=== PATIENT | male | born 1950 | race Caucasian/White ===

== ENCOUNTER → 2020-06-20 10:09 | Outpatient (CLI) | payer OTHER, MEDICARE, SELFPAY ==
--- NOTE | 2020-06-20 10:16 | DI.RAD.S_ITS ---
PROCEDURE: XR HIP W PEL IF DONE LT 2V INDICATIONS: l hip pain TECHNIQUE: AP and frogleg lateral views of the hip were acquired. COMPARISON: None. FINDINGS: Bones: No acute fractures or dislocations. No suspicious bony lesions. The visualized pelvic ring appears intact. Degenerative changes of the bilateral femoroacetabular joints, more severe on the left. Lower lumbar spondylitic changes. Soft tissues: No suspicious soft tissue calcifications or masses. Radiation seeds noted in the region of the prostate fossa. IMPRESSION: 1. Left hip without acute radiographic abnormalities. 2. 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 3. Lower lumbar spondylosis. Dictated by: Jose Bello M.D. on 06/20/2020 at 12:20 Approved by: Jose Bello M.D. on 06/20/2020 at 12:21
[2020-06-20 11:13] LABS: Alanine Aminotransferase 65 IU/L (<50); Albumin 4.8 g/dL (3.5-5.0); Albumin Globulin Ratio 1.6 (1.0-2.8); Alkaline Phosphatase 67 U/L (38-126); Aspartate Aminotransferase 44 IU/L (17-59); Bilirubin Total 1.3 mg/dL (0.2-1.3); Blood Urea Nitrogen 20 mg/dL (9-20); Carbon Dioxide 28 mmol/L (22-32); Chloride 103 mmol/L (98-107); Cholesterol 202 mg/dL (140-199); Estimated Glomerular Filt Rate > 60.0 mL/min (>60); Glucose 102 mg/dL (80-110); HDL Cholesterol 42 mg/dL (40-60); HEMOLYSIS < 15 (0-50); LDL Cholesterol Calculated 128 mg/dL (<100); Potassium 4.6 mmol/L (3.4-5.1); Sodium 141 mmol/L (137-145); Total Protein 7.8 g/dL (6.3-8.2); Triglycerides 158 mg/dL (35-150)
[2020-06-20 11:25] LABS: Vitamin D 25 Hydroxy (D3) 37.4 ng/mL (30.0-100.0)
[2020-06-20 11:39] LABS: Prostate Specific Antigen < 0.064 ng/mL (0.10-4.00)
== END ==
PROVIDERS: PCP Internal Medicine; Referring Provider Internal Medicine; Visit Provider Internal Medicine
DX: M25.552 Pain in left hip (principal); C61 Malignant neoplasm of prostate; Z13.1 Encounter for screening for diabetes mellitus; Z13.220 Encounter for screening for lipoid disorders; Z13.6 Encounter for screening for cardiovascular disorders
CPT/HCPCS: 36415; 73502; 80053; 80061; 82306; 84153

== ENCOUNTER → 2020-06-20 10:32 | Outpatient (CLI) | payer OTHER, MEDICARE, SELFPAY | PROVIDERS: PCP Internal Medicine; Referring Provider Internal Medicine; Visit Provider Internal Medicine | DX: M25.552 Pain in left hip (principal); M16.0 Bilateral primary osteoarthritis of hip; M47.816 Spondylosis without myelopathy or radiculopathy, lumbar region ==

== ENCOUNTER → 2020-11-01 10:17 | Outpatient (CLI) | payer OTHER, SELFPAY ==
[2020-11-01 11:19] LABS: Add Manual Diff / Slide Review NO; Basophils Absolute Auto 0 /uL (0-100); Basophils Percent Auto 0.4 % (0-2); Eosinophils Absolute Auto 100 /uL (0-450); Eosinophils Percent Auto 3.2 % (2-4); Hematocrit 42.5 % (41-53); Hemoglobin 14.4 g/dL (13.5-17.5); Lymphocytes Absolute Auto 700 /uL (1100-4500); Lymphocytes Percent Auto 15.5 % (25-40); Mean Corpuscular Hemoglobin 30.7 PG (26-34); Mean Corpuscular Volume 90.4 fL (80-100); Monocytes Absolute Auto 500 /uL (0-900); Neutrophils Absolute Auto 3100 /uL (1500-7000); Neutrophils Percent Auto 68.9 % (50-75); Platelet Count 240 X10^3/uL (150-400); Red Cell Distribution Width 14.1 % (11.6-14.8); White Blood Cell Count 4.6 X10^3/uL (4.5-11.0)
[2020-11-01 11:31] LABS: Hemoglobin A1C% w Est Avg Glu 5.3 % (4.0-6.0)
[2020-11-01 11:50] LABS: BUN Creatinine Ratio 23.8 (6-22); Blood Urea Nitrogen 20 mg/dL (9-20); Carbon Dioxide 26 mmol/L (22-32); Chloride 108 mmol/L (98-107); Estimated Glomerular Filt Rate > 60.0 mL/min (>60); Glucose 108 mg/dL (80-110); HEMOLYSIS < 15 (0-50); Potassium 4.4 mmol/L (3.4-5.1); Sodium 142 mmol/L (137-145)
== END ==
PROVIDERS: PCP Internal Medicine; Referring Provider Orthopaedic Surgery Adult Reconstructive Orthopaedic Surgery; Visit Provider Orthopaedic Surgery Adult Reconstructive Orthopaedic Surgery
DX: Z01.818 Encounter for other preprocedural examination (principal); R73.9 Hyperglycemia, unspecified; Z01.812 Encounter for preprocedural laboratory examination
CPT/HCPCS: 36415; 80048; 83036; 85025; 93005; 93010

== ENCOUNTER → 2020-11-13 13:33 | Outpatient (CLI) | payer OTHER, SELFPAY ==
[2020-11-13 15:59] LABS: COVID19 -Nasal RAPID Negative (Negative)
== END ==
PROVIDERS: PCP Internal Medicine; Visit Provider Nurse Practitioner
DX: Z01.812 Encounter for preprocedural laboratory examination (principal); Z20.822 Contact with and (suspected) exposure to COVID-19
CPT/HCPCS: 87635; C9803

== ENCOUNTER → 2020-12-02 09:13 | Outpatient (CLI) | payer OTHER, SELFPAY ==
[2020-12-02 14:30] LABS: COVID19 -Nasal RAPID Negative (Negative)
== END ==
PROVIDERS: PCP Internal Medicine; Visit Provider Physician Assistant
DX: Z01.812 Encounter for preprocedural laboratory examination (principal); Z20.822 Contact with and (suspected) exposure to COVID-19
CPT/HCPCS: 87635

== ENCOUNTER 2020-12-04 06:23 | Day surgery (SDC) | payer OTHER, SELFPAY ==
[2020-12-04] VITALS (19 sets, daily range): BP systolic 79–155; BP diastolic 31–100; PULSE 86–107; RESP 8–99; TEMP 35.5–36.9; O2SAT 22–100; BMI 27.2
--- NOTE | 2020-12-04 | DI.RAD.S_ITS ---
PROCEDURE: XR PELVIS 1-2V INDICATIONS: POST OPERATIVE LEFT HIP TECHNIQUE: 1 view of the lower pelvis acquired. COMPARISON: None. FINDINGS: Bones: Patient is status post left hip arthroplasty, with hardware components in expected positions. The hip joint appears congruent. The visualized bony structures appear intact. Soft tissues: Overlying postoperative changes are noted. No suspicious soft tissue densities. Brachytherapy seeds are noted in the prostate gland. IMPRESSION: Postop changes from left total hip arthroplasty with anatomic alignment. Dictated by: Erik Mariano M.D. on 12/04/2020 at 10:27 Approved by: Erik Mariano M.D. on 12/04/2020 at 10:27
--- NOTE | 2020-12-04 | DI.RAD.S_ITS ---
PROCEDURE: XR HIP LT 1V INDICATIONS: LEFT ANTERIOR HIP TECHNIQUE: 2 view(s) of the hip acquired. COMPARISON: [facility], CR, XR HIP W PEL IF DONE LT 2V, 06/20/2020, 10:35. FINDINGS: Bones: Patient is status post left hip arthroplasty, with hardware components in expected positions. The hip joint appears congruent. The visualized bony structures appear intact. Soft tissues: Overlying postoperative changes are noted. No suspicious soft tissue densities. Note is made of prior radiation therapy seed implants at the midline. IMPRESSION: Normal alignment established after left total hip arthroplasty. Dictated by: Eris Pool M.D. on 12/04/2020 at 10:42 Approved by: Eris Pool M.D. on 12/04/2020 at 10:56
[2020-12-04] MEDS: LACTATED RINGERS 1,000 ML 42 ML IV ×2 (07:12→09:04)
[2020-12-04] MEDS: ACETAMINOPHEN 325 MG TABLET 975 MG PO (07:14)
[2020-12-04] MEDS: CELECOXIB 200 MG CAPSULE PO (07:14)
--- NOTE | 2020-12-04 07:37 | PM.HP.1 ---
History of Present Illness History of Present Illness Date Patient Seen: 12/04/20 Time Patient Seen: 07:38 Chief complaint: *OPB* Narrative: Patient is a 7-year-old male with a longstanding history of left pain consisting mainly of anterior groin pain. He has failed conservative measures including NSAIDs activity modification etc.. Patient was initially scheduled tentatively for November 15, 2020 however this was delayed. He is here today for his left anterior total hip arthroplasty. Patient History Medical History Hearing loss Shoulder pain Vision disorder Surgical History Anesthesia History of knee surgery (~2009) History of rotator cuff surgery (~2016) Treatment (~2011) Family & Social History Family History Father History of heart disease Stroke Mother History of heart disease Brother Hypertension Liver disease Social History: household members spouse Prior Living Arrangements House Safety & Behavioral: Feels Safe in Current Yes Environment Been Physically Hurt or No Threatened By a Person Suicidal Ideation Description None Suicide Plan Description No Plan Tobacco & Substance use: Tobacco type cigarettes Smoking Status Former smoker alcohol intake current alcohol intake frequency a few times a week Substance Use Type does not use Meds Home Medications and Allergies Home Medications Medication Instructions Recorded Confirmed Type Milk Thistle 1 cap PO DAILY 06/20/20 12/04/20 History lutein 40 mg capsule 40 mg PO DAILY 06/20/20 12/04/20 History resveratrol 250 mg capsule 500 mg PO DAILY cap 06/20/20 12/04/20 History triamcinolone acetonide 0.1 % 1 applictn TOP DAILY PRN #80 gram 06/20/20 11/01/20 Rx topical cream acetaminophen [Tylenol Extra 1,000 mg PO TID 11/01/20 12/04/20 History Strength] tamsulosin 0.4 mg PO DAILY 11/01/20 12/04/20 History Allergies Allergy/AdvReac Type Severity Reaction Status Date / Time hydrocodone [From Vicodin] Allergy Intermediate Jittery, Verified 12/04/20 06:48 bumps forming on patient. [place] out of body Review of Systems Review of Systems ROS: Yes All systems reviewed with the patient and are negative except as otherwise documented Exam Vital Signs (past 8 hours): - 12/04/20 07:02 Temperature 97.6 F Pulse Rate 92 H Respiratory Rate 16 Blood Pressure 139/85 Pulse Oximetry 97 Oxygen Delivery Method Room Air Narrative Exam Narrative: Neurovascular intact to left lower extremity. Positive FADIR, positive Etta, negative log roll. No tenderness to palpation of greater trochanter. No skin breaks or rashes. Assessment & Plan Assessment & Plan narrative: Patient is a 70-year-old male here for his left anterior total hip arthroplasty. He was initially scheduled for November 15, 2020 however this was delayed. Plan is for aspirin 81 mg b.i.d. for 6 weeks for DVT prophylaxis. Patient will plan to spend 1 night in the hospital and discharged home with family. Preoperative labs and EKG have been reviewed. Plan for left anterior total hip arthroplasty. COVID-19 COVID-19 status: Negative Result date/Date tested (Pos, Neg/Pending): 12/02/20 Quality MIPS - Admit Advanced Care Plan / Current Medications Measures: #47 ? Advanced Care Plan Clinician documentation instruction: document at admission. [] I confirmed that the patient's Advance Care Plan is present, code status is documented, or surrogate decision maker is listed in the patient?s medical record. [SATISFIES [facility] PERFORMANCE] If Yes, Stop Here [] The patient?s Advance Care plan is not present because: (select) [MIPS PERFORMANCE EXCEPTION/EXCLUSION] [] I confirmed today that the patient does not wish or was not able to name a surrogate decision maker or provide an Advance Care Plan. [] Hospice care is currently being provided or has been provided this calendar year [] I did NOT confirm today the presence of an Advance Care Plan or surrogate decision maker documented within the patient's medical record. [DOES NOT SATISFY MIPS PERFORMANCE] #130 - Documentation of Current Medications in the Medical Record Clinician documentation instruction: use macro the first time you see a patient. [] I have utilized all available immediate resources to obtain, update, or review the patient?s current medications. [SATISFIES [facility] PERFORMANCE] If Yes, Stop Here [] The patient is not eligible for medication reconciliation; the patient is in an emergent medical situation where delaying treatment would jeopardize the patient?s health. [MIPS PERFORMANCE EXCEPTION/EXCLUSION] [] I did NOT confirm, update or review the patient's current list of medications today. [DOES NOT SATISFY MIPS PERFORMANCE] MIPS - CL Central Venous Catheter Placement Measure: #76 ? Prevention of Central Venous Catheter (CVC) ? Related Bloodstream Infection Clinician documentation instruction: use macro every time you place a central line. [] All elements of Maximal Sterile Barrier Technique, including hand hygiene, skin prep, and sterile ultrasound technique (if used) were followed. [SATISFIES MIPS PERFORMANCE] If Yes, Stop Here [] If ?No?, the medical reason all elements were NOT used for medical reason [] (ex. emergent condition). [] Maximal Sterile Barrier Technique was not followed, no reason provided [DOES NOT SATISFY MIPS PERFORMANCE] MIPS - DC Heart Failure Measures: #5 - Heart Failure (HF): Angiotensin-Converting Enzyme (HAWK) Inhibitor or Angiotensin Receptor Ran (ARB) Therapy for Left Ventricular Systolic Dysfunction (LVSD) and #8 - Heart Failure (HF): Beta-Ran Therapy for Left Ventricular Systolic Dysfunction (LVSD) Clinician documentation instruction: use macro at every CHF discharge. [] The patient has current or prior documentation of left ventricular ejection fraction (LVEF) less than 40%, or moderate or severely depressed left ventricular systolic function. Answer both: [SATISFIES [facility]IPS PERFORMANCE] [] The patient was prescribed or already taking an Angiotensin-Converting Enzyme (HAWK) Inhibitor, or Angiotensin Receptor Ran (ARB). [] The patient was prescribed or already taking a beta-ran. If Yes to Both, Stop Here [] Patient not prescribed/taking: [MIPS PERFORMANCE EXCEPTION/EXCLUSION] [] HAWK or ARB for medical/patient/system reason(s) including [] (ex. allergy, intolerance, contraindication) [] Beta-ran for medical/patient/system reason(s) including [] (ex. allergy, intolerance, contraindication) [] Patient not prescribed/taking: [DOES NOT SATISFY MIPS PERFORMANCE] [] HAWK or ARB, no reason given [] Beta-ran, no reason given
--- NOTE | 2020-12-04 07:41 | PM.PREOP ---
Pre-operative Note COVID-19 COVID-19 status: Negative Result date/Date tested (Pos, Neg/Pending): 12/02/20 Interval Note History & Physical reviewed/Exam performed by Physician: Yes Changes to H&P: No H&P completed within 30 days and has changed as indicated here:: Plan for left anterior total hip arthroplasty.
[2020-12-04] MEDS: CEFAZOLIN 2 GM/100 ML FROZ.PIGGY IV ×3 (07:51→23:37)
[2020-12-04] MEDS: TRANEXAMIC ACID 1,000 MG VIAL 2000 MG INJ ×2 (08:15→09:41)
--- NOTE | 2020-12-04 08:31 | SUR.OPER ---
Supine on padded Freedom table with bilateral legs secured in padded positioning boots and suspended in positioning spars, operative leg in traction per surgeon. Head on one pillow. Arm on non-operative side secured on padded armboard <90 degrees abduction. Arm on operative side padded and resting across chest then secured with tape over sheet. Padded perineal post in place per surgeon.
[2020-12-04] MEDS: KETOROLAC INJ (08:42)
[2020-12-04] MEDS: MORPHINE INJ (08:42)
[2020-12-04] MEDS: ROPIVACAINE 0.5% INJ (08:42)
[2020-12-04] MEDS: SODIUM CHLORIDE IRRIG SOLUTION 250 ML, POVIDONE-IODINE SPONGE STICKS 1 APPLIC IRR (09:32)
--- NOTE | 2020-12-04 10:10 | P.OP_ITS ---
Operative Date/Time/Diagnoses Date of procedure: 12/04/20 Time of procedure: 10:10 Pre-op diagnosis: left hip OA Post-op diagnosis: same Procedure & Clinicians Procedure: Left anteiror JARED Same procedure as scheduled: Yes Indications: left hip OA resistane to further conservative measures Surgeon: Ugo Benson Vocational Instructor: Jolie Gaviria Anesthesia Type: General and Spinal Operative Notes Findings: left hip OA with bone on bone articualtion of weight bearing portion of hip Closure Type: primary Prosthetic devices, grafts, tissues, transplants, or devices: Patton and Nephew 54 mm R3 cup 1x 30 mm screw 1x 20 mm screw 54 x 36 neutral offset polyethylene liner Patton and Nephew anthology size 9 high offset stem Oxinium 36-3 head Estimated Blood Loss (mL): 400 Procedure in detail: Patient was met in the preoperative holding area where the site and side of surgery were marked by . All last minute questions were answered. Informed consent had been reviewed in clinic and signed was also reviewed the preoperative holding area. Patient was then brought back in the operating room where he received a spinal anesthetic and then was induced under general anesthesia. He was then transferred onto the [place] table and both feet were placed in well-padded [place] table boots. The left lower extremity then prepped and draped in normal sterile fashion. A surgical time-out was performed verifying the site and side of surgery as well as the name of the patient. A 7 cm long incision approximately 2 cm distal and lateral from ASIS image was the fibular head was made in the skin using 10. Blade. Electrocautery was used to dissect down to the level of the tensor fascia. Tensor fascia was then incised using new 10. Blade. Allis clamp was then placed on the medial leaflet and the tensor muscle itself was reflected laterally. A Cobra was then placed over the superior aspect of the femoral neck. A Meyerding retractor was then placed over the lateral aspect of the rectus femoris and reactive to medially this gave us good exposure to the ascending branches of the circumflex vessels which were coagulated using electrocautery. A 2nd Cobra retractor was then placed underneath the inferior aspect of the femoral neck and a bent Hohmann was then placed over the anterior of the acetabulum to give us good capsular exposure. Inverted T-shaped capsulotomy was then performed the superior and inferior leaflets were tagged with a FiberWire suture and the Cobra retractors then placed intracapsularly this gave us good exposure to the femoral neck treated 1st reciprocating saw was used make the femoral neck cut based off the preoperative template. A corkscrew was then used to remove the femoral head. Retractors then placed to give us good acetabular exposure. The pulmonary was then removed using electrocautery and the labrum remnant was removed using a [place] blade. Then began reaming with a 40 5 mm Reamer upsizing by 2s until I got to 52 mm Reamer the last several reamers were reamed underneath fluoroscopic guidance. The 52 mm Reamer had good fit I then selected a 53 mm Reamer and selected a 54 mm 3 hole cup. This was then placed under fluoroscopic guidance and malleted into place. Two screws were then placed. The neutral offset liner was then malleted into place making sure the tabs were flush with the cup rim. Next I turned my attention the femoral side femoral elevator hook was placed under the posterior aspect of the femur the femur was externally rotated 120? extended to the floor and adducted. A bent Hohmann was then placed over the superior aspect of the superior leaflet and this was then further released off the greater trochanter to give soft spot where a large single prong retractors placed over the greater trochanter. A Nunes retractor was then placed over the calcar to give us good femoral neck exposure. The canal finer was then used followed by alex ivan bromarianne followed by broaches from sequentially from 1 through 8. We then trialed with a size 8 broach with a high offset neck and a 36+ 0 head. Hip was stable to maximal external rotation as well as 90? of external rotation and extension to the floor. Fluoroscopy demonstrated that we were a little long on the operative side as well as we could probably go up a stem size on the femur. The hip was then dislocated the trial components were then removed we up sized to a size 9 high offset stem this was then malleted into place. I then trialed again with a 36-3 head which had excellent radiographic length of leg length. Hip was then dislocated a final time the trial head was removed and Oxinium 36-3 head was then placed on the trunnion malleted into place and reduced a final time. Betadine solution was then placed into the wound and final fluoroscopic images were obtained. Betadine solution was then lavaged with copious normal saline. The periarticular injection was then performed and the capsule was then repaired using a running Ethibond suture in the FiberWire sutures were removed. The tensor fascia was then closed using 1. Vicryl in interrupted locking fashion followed by 2 Vicryl in the subcutaneous layer followed by 3-0 Stratafix in the subcuticular layer followed by Dermabond and Aquacel dressing. Complications: none Post-operative Condition: stable Disposition: PACU Plan for aftercare: 24 hours post-op abx, ASA 81mg BID for 6 weeks for DVT prophylaxis, WBAT LLE
--- NOTE | 2020-12-04 10:36 | SUR.PHASEI ---
Addendum entered by Eric Mcdonald R.N. 12/04/20 11:04: Pt was transported to room 222. Update to Taisha on last set of vitals prior to leaving recovery. Pts vitals returned to baseline. see vital signs Original Note: Pt has been experiencing labile BP. This is attributed to spinal he received prior to procedure. Per anesthesia, he required a Brendan gtt in the OR. He has been placed in trendelenburg at 7 degrees while in PACU. See current vitals. He is dozing intermittenly, verbalizes no pain and taking ice chips without difficulty. Plan for transport to room 222.
[2020-12-04] MEDS: LACTATED RINGERS 1,000 ML 125 ML IV ×2 (11:10→19:33)
[2020-12-04] MEDS: IBUPROFEN 400 MG TABLET PO ×3 (13:02→21:14)
--- NOTE | 2020-12-04 13:55 | PT.IIE ---
Current Diagnoses Unilateral primary osteoarthritis, left hip (12/04/20) Surgery Performed Operation Date: 12/04/20 07:45 Actual Procedures p Total Hip Arthroplasty/Anterior Approach(Left) - Ugo Benson MD Surgical History (Last Reviewed 06/20/20 @ 10:03 by Bright Simon MD) Anesthesia History of knee surgery (~2009) History of rotator cuff surgery (~2016) Treatment (~2011) Medical History (Last Reviewed 06/20/20 @ 10:03 by Bright Simon MD) Hearing loss Shoulder pain Vision disorder Physical Therapy Inpatient Evaluation/Re-Eval M1 PT/OT-IP Prior Functional Status Start: 12/04/20 11:03 Freq: NEEDED Status: Active Protocol: Document 12/04/20 13:53 AW (Rec: 12/04/20 14:26 AW [id number]) Medical Review Prior Functional Status Medical History Reviewed Yes Communication Pt is an effective verbal communicator. He is [place] and typically wears B hearing aids Mobility and Gait Independent without AD Activities of Daily Living and IADL's Independent with ADL's and all IADL's Social History Household Members spouse Living Arrangements House Number of Floors (Floors) One Floor Number of Stairs To Enter/Railing? 4 RYANNE with R rail through garage entrance and L rail at front entrance. Home Environment Standard Height Toilet,Walk in Shower Home Equipment Front Wheel Walker,Straight Cane,Raised Toilet Seat w/ Armrests,Shower Seat without Backrest Employment Status Retired Additional Social History Comment Pt lives in [place] with his , Stella. Both are retired and pt's will be available/able to assist as needed. M2 PT-IP Current Condition Start: 12/04/20 11:03 Freq: NEEDED Status: Active Protocol: Document 12/04/20 13:53 AW (Rec: 12/04/20 14:26 AW [id number]) Physical Therapy Current Condition Current Condition Evaluation Date 12/04/20 Treatment Diagnosis L JARED with anterior approach; difficulty in walking Onset Date 12/04/20 Precautions Anterior Hip Precautions No Hip Extension,No Hip External Rotation Weight Bearing Status Weight Bearing Status Weight Bear as Tolerated M3 PT-IP Subjective Start: 12/04/20 11:03 Freq: NEEDED Status: Active Protocol: Document 12/04/20 13:53 AW (Rec: 12/04/20 14:26 AW [id number]) Subjective Physical Therapy Visit Type Type Initial Evaluation Visit Start Time 13:21 Visit Stop Time 13:53 Total Visit Minutes 32 Notes Pt's was present throughout session Number of SENIOR ELECTRONICS ENGINEER Visits 0 Physical Therapy Visit Comments Patient Comments Pt is willing to participate with PT Patient Goals Return to regular activity Therapy Pain Assessment Pain When Pain Assessed During Mobility Pain Present Pain Present Denied Pain M4 PT-IP Mobility and Gait Start: 12/04/20 11:03 Freq: NEEDED Status: Active Protocol: Document 12/04/20 13:53 AW (Rec: 12/04/20 14:26 AW [id number]) PT-Bed Mobility Assessment Supine to Sit Supine to Sit Contact Guard Assistance,1 Person Assistance Scooting Scooting to Edge of Bed Standby Assistance PT-Transfer Assessment Sit to and From Stand Sit to and from Stand Contact Guard Assistance,1 Person Assistance,Use of Upper Extremities Equipment Transfer Assistive Device Gait Belt,Front Wheeled Walker Orthotic/Prosthetic Devices or Brace: No Transfers Transfer Destination Chair Transfer Technique Stand Step Pivot Transfer Ability Level of Assist Contact Guard Assistance Comments Mobility Comments Pt was sitting up in bed watching basketball as PT arrived. BP was 153/102 HR 100 at rest. He completed supine to sit CGA and sat EOB without complaint of dizziness or lightheadedness. He stood from the bed CGA and used the FWW to ambulate to the toilet [facility]. PT instructed pt to push the FWW over the toilet which he was able to do and then stood to void. Pt then used the FWW to ambulated in the halls a total of 75 feet SBA. On return to the room, pt transferred to the bedside chair [facility]. He was positioned there with call light and all needs in reach. His remained in the room. Fresh ice pack was applied to surgical site. Pt agreed to use the call light for all mobility needs. Gait Assessment Gait Gait Assistance Required: Standby Assistance,Contact Guard Assist Distance (Feet) 75 Able to Maintain Weight Bearing Status Yes During Gait Assistive Devices Assistive Device Gait Belt,Front Wheeled Walker Orthotic/Prosthetic Devices or Brace: No Gait Deviations General Gait Pattern Antalgic,Decreased Feet Clearance,Step-to Gait Factors Limiting Gait Function Factors Limiting Gait Function Decreased Sensation,Decreased Strength,Limited Range of Motion Comments Gait Comments Educated pt on anterior precautions. With initial gait , pt easily maintained precautions but stride length increased, prompting PT to teach modified step-to pattern for reduction of hip extension. Pt was then able to maintain precautions with minimal need for cues. Pt recalled ER precaution during turns without cues. Stair Climbing Assessment Comments Stair Climbing Comments Not assessed. PT-Balance Assessment Sitting Balance and Reactions Static Sitting Balance Ability Normal Dynamic Sitting Balance Ability Good Standing Balance and Reactions Static Standing Balance Ability Good Dynamic Standing Balance Ability Good Device Used FWW M5 PT-IP Objective Assessments Start: 12/04/20 11:03 Freq: NEEDED Status: Active Protocol: Document 12/04/20 13:53 AW (Rec: 12/04/20 14:26 AW [id number]) Orientation Orientation/Cognition Level of Alertness Alert Orientation Name,Day of Week,Place, Situation Language Function Ability Hard of Hearing Safety Awareness Understands Safety Issues Memory Description No Deficits Noted Gross Range of Motion Lower Extremity ROM Assessment Left Impaired Strength Lower Extremity Strength Assessment Left Impaired Hip 3/5 Knee 4/5 Comments Strength Comments RLE grossly 5/5 Sensation Assessment Sensation Gross Sensation Right LE Impaired,Left LE Impaired Light Touch Impaired Sensation Description Numbness Comments Sensation Comments Mild numbness BLE Muscle Tone Muscle Tone WNL Yes M6 PT-IP Treatment Start: 12/04/20 11:03 Freq: NEEDED Status: Active Protocol: Document 12/04/20 13:53 AW (Rec: 12/04/20 14:26 AW [id number]) Physical Therapy Treatment Exercises Exercises Ankle Pumps,Gluteal Sets,Quad Sets,Heel Slides Education Education Provided Precautions,Weight Bearing Status,Post-Op Packet,Safety Other Treatments Other Treatment Performed Educated pt on role of PT, plan of care, WB status, anterior hip precautions, and safe use of FWW. M7 PT-IP Assessment and Plan Start: 12/04/20 11:03 Freq: NEEDED Status: Active Protocol: Document 12/04/20 13:53 AW (Rec: 12/04/20 14:26 AW [id number]) PT Summary Assessment and Plan Potential Rehabilitation Potential Excellent Status of Condition at Evaluation Evolving Summary Impairments Pain,ROM,Strength,Sensation, Bed Mobility,Transfers,Gait Assessment Summary Enoch is an active 70 yo man seen for PT evaluation on POD0 following L JARED with anterior approach. He is independent in all regards at baseline. He required SBA to CGA with FWW for all mobilities during evaluation. He also needed cues to maintain anterior precautions during gait. PT anticipates pt will be safe to discharge home with spouse to assist and outpatient PT once he completes stair training and is medically cleared. Goals Bed Mobility Goal Independent Transfer Goal Independent,Front Wheeled Walker Gait Goal Independent,Front Wheel Walker Gait Distance 200 Other Goals - up/down 4 steps with unilateral rail SBA Days to Meet Goals 2 Frequency of Treatment Frequency Of Treatment Twice a Day Treatment Plan Physical Therapy Treatment Plan Bed Mobility Training,Transfer Training,Gait Training, Therapeutic Exercise,Balance Retraining,Post Op Education, Discharge Planning,Hot or Cold Pack Other Recommendations and Next Treatment review precautions; stairs Focus Precautions Anterior Hip Precautions No Hip Extension,No Hip External Rotation Recommendations To Nursing Amount of Assist Needed Standby Assistance Discharge Recommendations PT Discharge Recommendations Home with Assistance, Outpatient PT Transportation Needs at Discharge Private Vehicle
--- NOTE | 2020-12-04 14:10 | PC.NURSE ---
Pt arrived via gurney from PACU to 221 at 1055. A&Ox4.VSS, afebrile on RA. IVF LR @125ml/hr. Patient denies pain. Initially with decreased movement and sensation to B lower extremities, improved. PT at [facility] this afternoon, ambulating with pt using FWW, tolerating well. Continues to deny pain this shift. Aquacel dressing to L hip C/D/I. Voided x1 without difficulty, tolerated general diet well. +CMS to extremities.
[2020-12-04] MEDS: ACETAMINOPHEN 325 MG TABLET 650 MG PO ×2 (14:40→21:15)
[2020-12-04] MEDS: OXYCODONE IR 5 MG TABLET PO ×3 (14:40→23:37)
[2020-12-04] MEDS: ASPIRIN EC 81 MG TABLET PO (21:14)
[2020-12-04] MEDS: DOCUSATE 100 MG CAPSULE PO (21:14)
[2020-12-05] MEDS: IBUPROFEN 400 MG TABLET PO ×3 (00:58→09:26)
[2020-12-05] MEDS: SODIUM CHLORIDE 0.9% FLUSH 10 ML IV ×2 (04:52→09:26)
[2020-12-05 05:39] VITALS: BP 143/70; PULSE 82; RESP 18; TEMP 36.4; O2SAT 98
[2020-12-05 05:59] LABS: Hematocrit 32.8 % (41-53); Hemoglobin 11.4 g/dL (13.5-17.5)
--- NOTE | 2020-12-05 07:44 | PM.DS.1 ---
History of Present Illness History of Present Illness Date Patient Seen: 12/05/20 Time Patient Seen: 07:44 Chief complaint: *OPB* Narrative: Please refer to previously documented HPI and chart. Discharge Providers Provider Discharge Date: 12/05/20 Primary care physician: Bright Simon MD Consults: 12/04/20 11:01 Consult to Discharge Planning Routine Comment: Consult to Physical Therapy Evaluate & Treat Comment: Physician Instructions: post op JARED protocol Consult to Respiratory Therapy Evaluate & Treat Comment: Physician Instructions: Evaluate and treat Discharge provider: Eris Orozco PA-C Summary Hospital Course Discharge Diagnosis: Left hip osteoarthritis Status post left total hip arthroplasty via anterior approach Hospital Course: 70-year-old male with the above diagnosis was appropriately consented for the above procedure and presented to the OR undergoing said procedure without difficulty or complication then admitted for overnight rehabilitation convalescing appropriately and stable for discharge in good physical condition on exam this morning. At the time of discharge the patient was able to void, his wounds were clean, dry and intact. The patient was neurovascularly intact with no sign of DVT. He denied fever, chills, chest pain, shortness of breath and verbalize understanding postoperative care instructions agreeing with the plan for discharge and follow-up for re-evaluation clinic in 2 weeks. Status at Discharge Cognitive/behavioral status at discharge: oriented Functional status at discharge: wheelchair bound Overall status at discharge: patient is progressing back to baseline Time Spent with Patient Time spent: Less than 30 minutes Exam Vital Signs (past 8 hours): - 12/04/20 23:50 12/05/20 05:39 Temperature 98.4 F 97.5 F L Pulse Rate 91 H 82 Respiratory Rate 18 18 Blood Pressure 144/68 H 143/70 H Pulse Oximetry 95 98 Oxygen Delivery Method Room Air Oxygen Flow Rate 0 Narrative Exam Narrative: This is a 70-year-old male that was observed lying comfortably in bed in no apparent distress. He was alert and oriented x3. He had a normal heart rate and inspiratory effort. His wound was clean, dry and intact with expected breann-incisional tenderness to palpation. The distal left lower extremity was neurovascularly intact without signs or symptoms of DVT. Objective Labs Result Diagrams: 12/05/20 05:24 Labs: Laboratory Results - last 24 hr 12/05/20 05:24 Hgb 11.4 L Hct 32.8 L [facility] Medical History Hearing loss Shoulder pain Vision disorder Surgical History Anesthesia History of knee surgery (~2009) History of rotator cuff surgery (~2017) Treatment (~2011) Family History Father History of heart disease Stroke Mother History of heart disease Brother Hypertension Liver disease Social History household members: spouse Smoking Status: Former smoker alcohol intake: current Discharge Assessment & Plan Assessment and Plan Assessment: Patient progressing as expected status post left anterior total hip arthroplasty. Plan of Treatment: Discharge home today in stable condition. Discharge Plan Discharge Plan Patient Disposition: Home Discharge orders & Medications Discharge Orders: Discharge (Order); Ordered 12/05/20 Ordered By: Eris Orozco Prescriptions: New aspirin 81 mg Tablet,Delayed Release (Dr/Ec) 81 mg PO BID Qty: 90 RF: 0 docusate sodium [DOK] 100 mg Capsule 100 mg PO BID Qty: 60 RF: 0 oxycodone 5 mg Tablet 5 mg PO Q4-5H PRN (Reason: Pain, Moderate (4-6)) Qty: 60 RF: 0 Continued resveratrol 250 mg capsule 500 mg PO DAILY RF: 0 lutein 40 mg capsule 40 mg PO DAILY RF: 0 Milk Thistle 1 cap PO DAILY RF: 0 triamcinolone acetonide 0.1 % cream 1 applictn TOP DAILY PRN (Reason: rash) Qty: 80 RF: 1 tamsulosin 0.4 mg capsule 0.4 mg PO DAILY RF: 0 acetaminophen [Tylenol Extra Strength] 500 mg Tablet 1,000 mg PO TID Qty: 60 RF: 0 Follow up/Referrals: Bright Simon MD [Primary Care Provider] - Ugo Benson MD [Physician] - (2 weeks) Diet/Activity/Treatments Diet: Diet as Tolerated Activity: LLE WBAT Cold/Heat Therapy: Ice 2O min/hr PRN as tolerated Skin/Wound/Dressing Care Report to your healthcare provider any signs of infection, such as:: chills, fever, night sweats, increased pain, unusual drainage and unusual redness Dressing: Call if soiled or saturated. Keep clean, dry and intact. Visit Report/Discharge Packet Instructions: DI for Hip Replacement, DI for Prescription Opioid Use Stand Alone Forms: Patient Portal/API, Surgery Discharge Discharge Data Primary Care Provider: Bright Simon Attending Provider: Ugo Benson VTE Deep Vein Thrombosis/Pulmonary Embolism Present on Admission: No MIPS - Admit Advanced Care Plan / Current Medications Measures: #47 ? Advanced Care Plan Clinician documentation instruction: document at admission. [] I confirmed that the patient's Advance Care Plan is present, code status is documented, or surrogate decision maker is listed in the patient?s medical record. [SATISFIES MIPS PERFORMANCE] If Yes, Stop Here [] The patient?s Advance Care plan is not present because: (select) [MIPS PERFORMANCE EXCEPTION/EXCLUSION] [] I confirmed today that the patient does not wish or was not able to name a surrogate decision maker or provide an Advance Care Plan. [] Hospice care is currently being provided or has been provided this calendar year [] I did NOT confirm today the presence of an Advance Care Plan or surrogate decision maker documented within the patient's medical record. [DOES NOT SATISFY MIPS PERFORMANCE] #130 - Documentation of Current Medications in the Medical Record Clinician documentation instruction: use macro the first time you see a patient. [] I have utilized all available immediate resources to obtain, update, or review the patient?s current medications. [SATISFIES MIPS PERFORMANCE] If Yes, Stop Here [] The patient is not eligible for medication reconciliation; the patient is in an emergent medical situation where delaying treatment would jeopardize the patient?s health. [MIPS PERFORMANCE EXCEPTION/EXCLUSION] [] I did NOT confirm, update or review the patient's current list of medications today. [DOES NOT SATISFY MIPS PERFORMANCE] MIPS - CL Central Venous Catheter Placement Measure: #76 ? Prevention of Central Venous Catheter (CVC) ? Related Bloodstream Infection Clinician documentation instruction: use macro every time you place a central line. [] All elements of Maximal Sterile Barrier Technique, including hand hygiene, skin prep, and sterile ultrasound technique (if used) were followed. [SATISFIES MIPS PERFORMANCE] If Yes, Stop Here [] If ?No?, the medical reason all elements were NOT used for medical reason [] (ex. emergent condition). [] Maximal Sterile Barrier Technique was not followed, no reason provided [DOES NOT SATISFY MIPS PERFORMANCE] MIPS - DC Heart Failure Measures: #5 - Heart Failure (HF): Angiotensin-Converting Enzyme (HAWK) Inhibitor or Angiotensin Receptor Ran (ARB) Therapy for Left Ventricular Systolic Dysfunction (LVSD) and #8 - Heart Failure (HF): Beta-Ran Therapy for Left Ventricular Systolic Dysfunction (LVSD) Clinician documentation instruction: use macro at every CHF discharge. [] The patient has current or prior documentation of left ventricular ejection fraction (LVEF) less than 40%, or moderate or severely depressed left ventricular systolic function. Answer both: [SATISFIES MIPS PERFORMANCE] [] The patient was prescribed or already taking an Angiotensin-Converting Enzyme (HAWK) Inhibitor, or Angiotensin Receptor Ran (ARB). [] The patient was prescribed or already taking a beta-ran. If Yes to Both, Stop Here [] Patient not prescribed/taking: [MIPS PERFORMANCE EXCEPTION/EXCLUSION] [] HAWK or ARB for medical/patient/system reason(s) including [] (ex. allergy, intolerance, contraindication) [] Beta-ran for medical/patient/system reason(s) including [] (ex. allergy, intolerance, contraindication) [] Patient not prescribed/taking: [DOES NOT SATISFY MIPS PERFORMANCE] [] HAWK or ARB, no reason given [] Beta-ran, no reason given
[2020-12-05 07:50] VITALS: BP 143/80; PULSE 88; RESP 19; TEMP 36.6; O2SAT 96
--- NOTE | 2020-12-05 08:28 | P.DS_ITS ---
History of Present Illness History of Present Illness Date Patient Seen: 12/05/20 Time Patient Seen: 08:28 Chief complaint: *OPB* Narrative: Patient's pain is mild. Denies fever or chills. No nausea or vomiting. Patient has his at home to assist him. Patient ambulating. Otherwise without complaints. Discharge Providers Provider Discharge Date: 12/05/20 Primary care physician: Bright Simon MD Consults: 12/04/20 11:01 Consult to Discharge Planning Routine Comment: Consult to Physical Therapy Evaluate & Treat Comment: Physician Instructions: post op JARED protocol Consult to Respiratory Therapy Evaluate & Treat Comment: Physician Instructions: Evaluate and treat Discharge provider: Ricardo Wellington PA-C Summary Hospital Course Discharge Diagnosis: left hip OA Hospital Course: Procedure: Left anteiror JARED Same procedure as scheduled: Yes Indications: left hip OA resistane to further conservative measures Surgeon: Ugo Benson Marine Cargo Specialist: Jolie Gaviria Anesthesia Type: General and Spinal Operative Notes Findings: left hip OA with bone on bone articualtion of weight bearing portion of hip Closure Type: primary Prosthetic devices, grafts, tissues, transplants, or devices: [employer] 54 mm R3 cup 1x 30 mm screw 1x 20 mm screw 54 x 36 neutral offset polyethylene liner [employer]hew anthology size 9 high offset stem Oxinium 36-3 head Estimated Blood Loss (mL): 400 Patient admitted to hospital for left anterior total hip arthroplasty. Patient consented to the same. Patient taken operating room yesterday underwent left total hip arthroplasty, anterior. Patient back in his room recovering as in stable condition. Patient ambulating. Patient has as home to assist him. Discharge home today in stable condition. Status at Discharge Cognitive/behavioral status at discharge: at baseline, oriented Functional status at discharge: uses cane/walker Overall status at discharge: patient is progressing back to baseline Time Spent with Patient Time spent: Less than 30 minutes Exam Vital Signs (past 8 hours): - 12/05/20 05:39 Temperature 97.5 F L Pulse Rate 82 Respiratory Rate 18 Blood Pressure 143/70 H Pulse Oximetry 98 Oxygen Delivery Method Room Air Oxygen Flow Rate 0 Narrative Exam Narrative: 70-year-old male sitting up in bed having breakfast. Patient no apparent distress. Neurovascular status is intact bilateral lower extremities. Both legs are warm and dry. Dressing is Clean, dry, intact.. Objective Labs Result Diagrams: 12/05/20 05:24 Labs: Laboratory Results - last 24 hr 12/05/20 05:24 Hgb 11.4 L Hct 32.8 L PFSH Medical History Hearing loss Shoulder pain Vision disorder Surgical History Anesthesia History of knee surgery (~2009) History of rotator cuff surgery (~2016) Treatment (~2011) Family History Father History of heart disease Stroke Mother History of heart disease Brother Hypertension Liver disease Social History household members: spouse Smoking Status: Former smoker alcohol intake: current Discharge Assessment & Plan Assessment and Plan Assessment: Patient progressing as expected status post left anterior total hip arthroplasty. Plan of Treatment: Discharge home today in stable condition. Discharge Plan Discharge Plan Patient Disposition: Home Discharge orders & Medications Discharge Orders: Discharge (Order); Ordered 12/05/20 Ordered By: Eris Orozco Prescriptions: New aspirin 81 mg Tablet,Delayed Release (Dr/Ec) 81 mg PO BID Qty: 90 RF: 0 docusate sodium [DOK] 100 mg Capsule 100 mg PO BID Qty: 60 RF: 0 oxycodone 5 mg Tablet 5 mg PO Q4-5H PRN (Reason: Pain, Moderate (4-6)) Qty: 60 RF: 0 Continued resveratrol 250 mg capsule 500 mg PO DAILY RF: 0 lutein 40 mg capsule 40 mg PO DAILY RF: 0 Milk Thistle 1 cap PO DAILY RF: 0 triamcinolone acetonide 0.1 % cream 1 applictn TOP DAILY PRN (Reason: rash) Qty: 80 RF: 1 tamsulosin 0.4 mg capsule 0.4 mg PO DAILY RF: 0 acetaminophen [Tylenol Extra Strength] 500 mg Tablet 1,000 mg PO TID Qty: 60 RF: 0 Follow up/Referrals: Bright Simon MD [Primary Care Provider] - Ugo Benson MD [Physician] - (2 weeks) Diet/Activity/Treatments Diet: Diet as Tolerated Activity: LLE WBAT Cold/Heat Therapy: Ice 2O min/hr PRN as tolerated Skin/Wound/Dressing Care Report to your healthcare provider any signs of infection, such as:: chills, fever, night sweats, increased pain, unusual drainage and unusual redness Dressing: Call if soiled or saturated. Keep clean, dry and intact. Visit Report/Discharge Packet Instructions: DI for Hip Replacement Stand Alone Forms: Surgery Discharge Discharge Data Primary Care Provider: Bright Simon Attending Provider: Ugo Benson VTE Deep Vein Thrombosis/Pulmonary Embolism Present on Admission: No MIPS - Admit Advanced Care Plan / Current Medications Measures: #47 ? Advanced Care Plan Clinician documentation instruction: document at admission. [] I confirmed that the patient's Advance Care Plan is present, code status is documented, or surrogate decision maker is listed in the patient?s medical record. [SATISFIES MIPS PERFORMANCE] If Yes, Stop Here [] The patient?s Advance Care plan is not present because: (select) [MIPS PERFORMANCE EXCEPTION/EXCLUSION] [] I confirmed today that the patient does not wish or was not able to name a surrogate decision maker or provide an Advance Care Plan. [] Hospice care is currently being provided or has been provided this calendar year [] I did NOT confirm today the presence of an Advance Care Plan or surrogate decision maker documented within the patient's medical record. [DOES NOT SATISFY MIPS PERFORMANCE] #130 - Documentation of Current Medications in the Medical Record Clinician documentation instruction: use macro the first time you see a patient. [] I have utilized all available immediate resources to obtain, update, or review the patient?s current medications. [SATISFIES MIPS PERFORMANCE] If Yes, Stop Here [] The patient is not eligible for medication reconciliation; the patient is in an emergent medical situation where delaying treatment would jeopardize the patient?s health. [MIPS PERFORMANCE EXCEPTION/EXCLUSION] [] I did NOT confirm, update or review the patient's current list of medications today. [DOES NOT SATISFY MIPS PERFORMANCE] MIPS - CL Central Venous Catheter Placement Measure: #76 ? Prevention of Central Venous Catheter (CVC) ? Related Bloodstream Infection Clinician documentation instruction: use macro every time you place a central line. [] All elements of Maximal Sterile Barrier Technique, including hand hygiene, skin prep, and sterile ultrasound technique (if used) were followed. [SATISFIES MIPS PERFORMANCE] If Yes, Stop Here [] If ?No?, the medical reason all elements were NOT used for medical reason [] (ex. emergent condition). [] Maximal Sterile Barrier Technique was not followed, no reason provided [DOES NOT SATISFY MIPS PERFORMANCE] MIPS - DC Heart Failure Measures: #5 - Heart Failure (HF): Angiotensin-Converting Enzyme (HAWK) Inhibitor or Angiotensin Receptor Ran (ARB) Therapy for Left Ventricular Systolic Dysfunction (LVSD) and #8 - Heart Failure (HF): Beta-Ran Therapy for Left Ventricular Systolic Dysfunction (LVSD) Clinician documentation instruction: use macro at every CHF discharge. [] The patient has current or prior documentation of left ventricular ejection fraction (LVEF) less than 40%, or moderate or severely depressed left ventricular systolic function. Answer both: [SATISFIES MIPS PERFORMANCE] [] The patient was prescribed or already taking an Angiotensin-Converting Enzyme (HAWK) Inhibitor, or Angiotensin Receptor Ran (ARB). [] The patient was prescribed or already taking a beta-ran. If Yes to Both, Stop Here [] Patient not prescribed/taking: [MIPS PERFORMANCE EXCEPTION/EXCLUSION] [] HAWK or ARB for medical/patient/system reason(s) including [] (ex. allergy, intolerance, contraindication) [] Beta-ran for medical/patient/system reason(s) including [] (ex. allergy, intolerance, contraindication) [] Patient not prescribed/taking: [DOES NOT SATISFY MIPS PERFORMANCE] [] HAWK or ARB, no reason given [] Beta-ran, no reason given
--- NOTE | 2020-12-05 09:08 | PT.IPTN ---
Current Diagnoses Unilateral primary osteoarthritis, left hip (12/04/20) Surgery Performed Operation Date: 12/04/20 07:45 Actual Procedures p Total Hip Arthroplasty/Anterior Approach(Left) - Ugo Benson MD Physical Therapy Treatment Note M2 PT-IP Current Condition Start: 12/04/20 11:03 Freq: NEEDED Status: Active Protocol: Document 12/04/20 13:53 AW (Rec: 12/04/20 14:26 AW [id number]) Physical Therapy Current Condition Current Condition Evaluation Date 12/04/20 Treatment Diagnosis L JARED with anterior approach; difficulty in walking Onset Date 12/04/20 Precautions Anterior Hip Precautions No Hip Extension,No Hip External Rotation Weight Bearing Status Weight Bearing Status Weight Bear as Tolerated M3 PT-IP Subjective Start: 12/04/20 11:03 Freq: NEEDED Status: Active Protocol: Document 12/05/20 09:08 AW (Rec: 12/05/20 09:26 AW [id number]) Subjective Physical Therapy Visit Type Type Treatment Note Visit Start Time 08:54 Visit Stop Time 09:08 Total Visit Minutes 14 Physical Therapy Visit Comments Patient Comments Pt is willing to participate with PT Therapy Pain Assessment Pain When Pain Assessed During Mobility Pain Present Pain Present Pain Reported Location Left Hip Intensity 2 Scale Used Numeric (0 - 10) Pain Management Techniques Apply Cold,Timing of Activity with Medications M4 PT-IP Mobility and Gait Start: 12/04/20 11:03 Freq: NEEDED Status: Active Protocol: Document 12/05/20 09:08 AW (Rec: 12/05/20 09:26 AW [id number]) PT-Bed Mobility Assessment Supine to Sit Supine to Sit Standby Assistance Sit to Supine Sit to Supine Standby Assistance PT-Transfer Assessment Sit to and From Stand Sit to and from Stand Standby Assistance,Use of Upper Extremities Equipment Transfer Assistive Device Gait Belt,Front Wheeled Walker Orthotic/Prosthetic Devices or Brace: No Transfers Transfer Destination Bed Transfer Technique Stand Step Pivot Transfer Ability Level of Assist Standby Assistance Comments Mobility Comments Pt was reclined in the bed as PT arrived. He transitioned to sitting EOB SBA and then stood SBA. He used the FWW to ambulate in the halls SBA. After stair training, pt returned to the room and transitioned back to supine SBA. Pt was left with ice pack applied to anterior hip, call light in reach. Gait Assessment Gait Gait Assistance Required: Standby Assistance Distance (Feet) 250 Able to Maintain Weight Bearing Status Yes During Gait Assistive Devices Assistive Device Gait Belt,Front Wheeled Walker Orthotic/Prosthetic Devices or Brace: No Gait Deviations General Gait Pattern Antalgic,Decreased Feet Clearance,Step-to Gait Factors Limiting Gait Function Factors Limiting Gait Function Decreased Sensation,Decreased Strength,Limited Range of Motion Comments Gait Comments Cued step-to patterning to maintain anterior hip precautions since pt's stride length put him at risk of extending his operative hip. Pt required occasional cues to slow down and for step-to pattern. Stair Climbing Assessment Evaluation Level of Assist On Stairs Standby Assistance Devices Stair Climbing Assistive Devices Left Railing Technique/Endurance Stair Climbing Direction Ascend and Descend Stair Climbing Technique Step to Step Number of Steps Climbed 12 Stair Climbing Set # Repetitions (reps) 1 Comments Stair Climbing Comments Instructed pt in stair technique/patterning and pt was able to demonstrate without additional cues. M5 PT-IP Objective Assessments Start: 12/04/20 11:03 Freq: NEEDED Status: Active Protocol: Document 12/04/20 13:53 AW (Rec: 12/04/20 14:26 AW [id number]) Orientation Orientation/Cognition Level of Alertness Alert Orientation Name,Day of Week,Place, Situation Language Function Ability Hard of Hearing Safety Awareness Understands Safety Issues Memory Description No Deficits Noted Gross Range of Motion Lower Extremity ROM Assessment Left Impaired Strength Lower Extremity Strength Assessment Left Impaired Hip 3/5 Knee 4/5 Comments Strength Comments RLE grossly 5/5 Sensation Assessment Sensation Gross Sensation Right LE Impaired,Left LE Impaired Light Touch Impaired Sensation Description Numbness Comments Sensation Comments Mild numbness BLE Muscle Tone Muscle Tone WNL Yes M6 PT-IP Treatment Start: 12/04/20 11:03 Freq: NEEDED Status: Active Protocol: Document 12/05/20 09:08 AW (Rec: 12/05/20 09:26 AW [id number]) Physical Therapy Treatment Education Education Provided Precautions,Weight Bearing Status,Safety M7 PT-IP Assessment and Plan Start: 12/04/20 11:03 Freq: NEEDED Status: Active Protocol: Document 12/05/20 09:08 AW (Rec: 12/05/20 09:26 AW [id number]) PT Summary Assessment and Plan Summary Impairments Pain,ROM,Strength,Sensation, Bed Mobility,Transfers,Gait Progress Towards Goals Progressing Toward Goals,Safe For Discharge Assessment Summary Enoch required no more than SBA for all mobility this date . He shows good awareness of precautions. Pt is minimally weightbearing through the walker but this PT advised pt to use the FWW for safety at least until first outpatient PT appointment which is scheduled for next Friday. Pt is safe for discharge home. Goals Bed Mobility Goal Independent Transfer Goal Independent,Front Wheeled Walker Gait Goal Independent,Front Wheel Walker Gait Distance 200 Other Goals - up/down 4 steps with unilateral rail SBA Days to Meet Goals 2 Frequency of Treatment Frequency Of Treatment Discharge Treatment Plan Physical Therapy Treatment Plan Bed Mobility Training,Transfer Training,Gait Training, Therapeutic Exercise,Balance Retraining,Post Op Education, Discharge Planning,Hot or Cold Pack Precautions Anterior Hip Precautions No Hip Extension,No Hip External Rotation Recommendations To Nursing Amount of Assist Needed Standby Assistance Discharge Recommendations PT Discharge Recommendations Home with Assistance, Outpatient PT Transportation Needs at Discharge Private Vehicle
[2020-12-05] MEDS: ACETAMINOPHEN 325 MG TABLET 650 MG PO (09:25)
[2020-12-05] MEDS: DOCUSATE 100 MG CAPSULE PO (09:26)
[2020-12-05] MEDS: ASPIRIN EC 81 MG TABLET PO (09:26)
[2020-12-05] MEDS: TAMSULOSIN 0.4 MG CAPSULE PO (09:26)
--- NOTE | 2020-12-05 10:20 | CM.DANOTE ---
DCP: Case received, EMR reviewed and met with patient. Introduced self and role. Was able to obtain information from patient regarding his baseline activity level prior to his having surgery, and current living situation. DCP assessment completed with information currently available. Patient is a 70 year old male who admitted yesterday morning to the care of the orthopedic team. PCP: Dr. Simon. Payer: confirmed: [employer]. Patient came to the hospital via private vehicle for a surgical procedure. He had left total hip arthroplasty. Patient has had history of left hip osteoarthritis. Met with patient in his room. He was sitting up in bed, alert and oriented. He worked with P.T. yesterday, and is expected to do so again today. Patient confirmed that he resides here in [place] with his spouse, Stella. He indicated that prior to surgery, he was using no DME equipment, and has still been able to drive. He also stated that he will be pursuing outpatient P.T. P: Patient has discharge orders for home today. He will be working with P.T. again before discharge. Eve Steinberg RN/Fine Grader
[2020-12-05 10:53] VITALS: BP 139/81; PULSE 93; RESP 17; TEMP 36.9; O2SAT 96
--- NOTE | 2020-12-05 11:10 | PC.NURSE ---
Pt discharge education given to pt and spouse, discussed- activity, diet, weight measures, worsening symtoms, f/u appts, medications and medication safety, s/s of infection, s/s of stroke, reasons to seek medical attention. Pt and spouse expressed understanding, all questions answered. IV intact, tolerated well. All belongings packed and sent with spouse. Pt left via w/c accompanied by RN and , to POV at main entrance.
== END 2020-12-05 11:12 | disposition home or self-care (01) ==
LOC: OR 06:32 → AC 06:41
PROVIDERS: PCP Internal Medicine; Referring Provider Internal Medicine; Visit Provider Orthopaedic Surgery Adult Reconstructive Orthopaedic Surgery
PROC: (CPT 27130; principal; 2020-12-04 07:45)
DX: M16.12 Unilateral primary osteoarthritis, left hip (principal)
CPT/HCPCS: 27130; 36415; 72170; 73501; 76000; 85014; 85018; 97116; 97161; C1776; J0690; J1885; J2250; J2270; J2704; J2795; J3010

== ENCOUNTER 2023-04-25 11:44 | Emergency (ER) | payer SELFPAY ==
[2020-12-04 11:14] VITALS: BMI 27.2
[2023-04-25 11:50] VITALS: BP 142/75; PULSE 89; RESP 18; TEMP 36.6; O2SAT 99; BMI 28.1
--- NOTE | 2023-04-25 12:18 | ED_ITS ---
HPI - Skin/Abscess/Foreign Bdy <Naima Solis PA-C - Last Filed: 04/25/23 19:01> General Chief complaint: Skin/Abscess/Foreign Body Stated complaint: cut LT hand pointer finger w/a fish knife Time Seen by Provider: 04/25/23 12:11 History of Present Illness HPI narrative: Patient is a 72-year-old male who cut his left 2nd finger, dorsal aspect, while cutting salmon for crab bait. The fish was partially frozen and he had a very sharp knife. He immediately applied pressure and came to the emergency room. He reports full sensation and movement in his finger. He notes mild pain, unknown last Tdap. Reports no antibiotic allergies, generally well. Related Data Home Medications Medication Instructions Recorded Confirmed Milk Thistle 1 cap PO DAILY 06/20/20 12/04/20 lutein 40 mg capsule 40 mg PO DAILY 06/20/20 12/04/20 resveratrol 250 mg capsule 500 mg PO DAILY 06/20/20 12/04/20 Previous Rx's Medication Instructions Recorded acetaminophen 500 mg tablet 1,000 mg PO TID #60 tabs 12/05/20 (Tylenol Extra Strength) docusate sodium 100 mg capsule 100 mg PO BID #60 caps 12/05/20 (DOK) tamsulosin 0.4 mg capsule 0.4 mg PO BID #180 caps 06/21/21 triamcinolone acetonide 0.1 % 1 applic topical DAILY PRN rash 06/21/21 topical cream #80 grams cephalexin 500 mg capsule 500 mg PO QID 5 days #20 caps 04/25/23 cephalexin 500 mg capsule 500 mg PO QID 5 days #20 caps 04/25/23 Allergies Allergy/AdvReac Type Severity Reaction Status Date / Time hydrocodone [From Vicodin] Allergy Intermediate Jittery, Verified 04/25/23 11:55 bumps forming on patient. [place] out of body Review of Systems <Naima Solis PA-C - Last Filed: 04/25/23 19:01> Review of Systems ROS Unobtainable: All systems reviewed & are unremarkable except as noted in HPI and below Patient History <Naima Solis PA-C - Last Filed: 04/25/23 19:01> Medical History Hearing loss Shoulder pain Vision disorder Surgical History Anesthesia History of knee surgery (~2009) History of rotator cuff surgery (~2016) Treatment (~2011) Family History Father History of heart disease Stroke Mother History of heart disease Brother Hypertension Liver disease Social History household members: spouse Smoking Status: Former smoker alcohol intake: current Smoking Status: Former smoker alcohol intake frequency: a few times a week Substance Use Type: does not use Exam <Naima Solis PA-C - Last Filed: 04/25/23 19:01> Narrative Exam Narrative: GENERAL: 72 year old patient appears stated age. Well-developed patient, in no distress. NEURO: AOx3. RESPIRATORY: No distress EXTREMITIES: No edema or joint tenderness. SKIN: 3 cm flap on dorsal aspect of left 2nd finger between MCP and PIP joint. Flap appears well-perfused. Patient has full sensation in distal finger, with intact 2nd finger flexion and extension. No tendon visible with movement of finger. Initial Vital Signs Initial Vital Signs: Vital Signs Temperature 97.8 F 04/25/23 11:50 Pulse Rate 89 04/25/23 11:50 Respiratory Rate 18 04/25/23 11:50 Blood Pressure 142/75 H 04/25/23 11:50 Pulse Oximetry 99 04/25/23 11:50 Oxygen Delivery Method Room Air 04/25/23 11:50 <Jacinda Gonzalez DO - Last Filed: 04/25/23 19:42> Initial Vital Signs Initial Vital Signs: Vital Signs Temperature 97.8 F 04/25/23 11:50 Pulse Rate 89 04/25/23 11:50 Respiratory Rate 18 04/25/23 11:50 Blood Pressure 142/75 H 04/25/23 11:50 Pulse Oximetry 99 04/25/23 11:50 Oxygen Delivery Method Room Air 04/25/23 11:50 Procedures <Naima Solis PA-C - Last Filed: 04/25/23 19:01> Laceration Repair Laceration 1: Site: hand Side (If applicable): left Size (cm): 3 Description: flap Depth: simple, single layer Local Anesthetic: lidocaine 1% Amount of anesthesia used (mL): 2 Pre-repair: wound explored and irrigated extensively Skin layer closed with: nylon Skin layer suture size: 4-0 Number of sutures: 12 Course <Naima Solis PA-C - Last Filed: 04/25/23 19:01> Orders Ordered: Discontinued Medications Bacitracin (Bacitracin Oint 0.9 Gm Pckt) 1 applic TOP NOW ONE Stop: 04/25/23 12:44 Last Admin: 04/25/23 13:18 Dose: 1 applic Documented By: CASEY Diphtheria/Tetanus/Acell Pertussis (Tet,Diph,Pertuss(Acell),Vac/Pf 0.5 Ml Syringe) 0.5 ml IM .ONCE ONE Stop: 04/25/23 12:12 Last Admin: 04/25/23 12:39 Dose: 0.5 ml Documented By: FLOR Lidocaine HCl (Lidocaine 1% (Pf) 5 Ml) 5 ml SUBCUT NOW ONE Stop: 04/25/23 12:12 Last Admin: 04/25/23 12:39 Dose: 5 ml Documented By: FLOR Vital Signs Vital signs: Vital Signs - 8 hr 04/25/23 11:50 04/25/23 13:35 Temperature 97.8 F Pulse Rate 89 87 Respiratory Rate 18 18 Blood Pressure 142/75 H 144/77 H Pulse Oximetry 99 97 Oxygen Delivery Method Room Air Room Air <Jacinda Gonzalez DO - Last Filed: 04/25/23 19:42> Orders Ordered: Discontinued Medications Bacitracin (Bacitracin Oint 0.9 Gm Pckt) 1 applic TOP NOW ONE Stop: 04/25/23 12:44 Last Admin: 04/25/23 13:18 Dose: 1 applic Documented By: CASEY Diphtheria/Tetanus/Acell Pertussis (Tet,Diph,Pertuss(Acell),Vac/Pf 0.5 Ml Syringe) 0.5 ml IM .ONCE ONE Stop: 04/25/23 12:12 Last Admin: 04/25/23 12:39 Dose: 0.5 ml Documented By: FLOR Lidocaine HCl (Lidocaine 1% (Pf) 5 Ml) 5 ml SUBCUT NOW ONE Stop: 04/25/23 12:12 Last Admin: 04/25/23 12:39 Dose: 5 ml Documented By: FLOR Vital Signs Vital signs: Vital Signs - 8 hr 04/25/23 11:50 04/25/23 13:35 Temperature 97.8 F Pulse Rate 89 87 Respiratory Rate 18 18 Blood Pressure 142/75 H 144/77 H Pulse Oximetry 99 97 Oxygen Delivery Method Room Air Room Air MDM - Skin/Abscess/Foreign Bdy <Naima Solis PA-C - Last Filed: 04/25/23 19:01> MDM Narrative Medical decision making narrative: Multiple etiologies for patient's symptoms considered including, but not limited to: Laceration. Laceration repaired after extensive irrigation and wound exploration. Wound evaluated in consultation with Dr. Gonzalez. Patient tolerated repair well, total of 12 interrupted sutures placed. Patient with good range of motion and full sensation after laceration repair. Patient prescribed course of Keflex for prophylaxis. Advised to return in 7 days for suture removal, or sooner if signs of infection. Patient's symptoms improved over duration of stay with above-stated therapies. Findings and discharge diagnosis discussed with patient/family followed by verbalization of understanding Return precautions discussed with patient/family whom verbalize understanding of diagnosis and plan Discharge Plan Departure Patient Disposition: Home Clinical Impression: Laceration of hand Instructions: DI for Laceration Repair -- Finger Activity Restrictions/Additional Instructions: I will prescribe antibiotics since this wound is contaminated by fish, sent to [facility]. Keep your hand elevated to reduce swelling, pain, drainage. If you are having pain, you can take Tylenol or ibuprofen [id number]. Please keep the wound clean and dry to the best of your ability. Please monitor for signs of infection such as redness to the skin or increasing pain. Have the sutures/fr[place] removed by your doctor in 7-10 days. If you are unable to get into your doctor, we would be happy to remove the sutures in that same timeframe. Prescriptions: New cephalexin 500 mg capsule 500 mg PO QID 5 Days Qty: 20 0RF cephalexin 500 mg capsule 500 mg PO QID 5 Days Qty: 20 0RF No Action triamcinolone acetonide 0.1 % cream 1 applic TOP DAILY PRN (Reason: rash) Qty: 80 0RF Rx Instructions: Uses for flare ups - only applies one to two times when flare upped. tamsulosin 0.4 mg capsule 0.4 mg PO BID Qty: 180 0RF Rx Instructions: PT NEEDS TO FOLLOW UP WITH PCP PRIOR TO END OF RX AND BEFORE CONT'D FILLS. PLEASE CALL TO SCHEDULE APPT. THANKS 06/21/21 resveratrol 250 mg capsule 500 mg PO DAILY lutein 40 mg capsule 40 mg PO DAILY Rx Instructions: administer with meals Milk Thistle 1 cap PO DAILY Rx Instructions: 250mg docusate sodium [DOK] 100 mg Capsule 100 mg PO BID Qty: 60 0RF acetaminophen [Tylenol Extra Strength] 500 mg Tablet 1,000 mg PO TID Qty: 60 0RF Referrals: Bright Simon MD [Primary Care Provider] - Stand Alone Forms: Patient Portal/API <Jacinda Gonzalez DO - Last Filed: 04/25/23 19:42> Cosign ED Attending Cosignature Attestation: I was immediately available in the department for consultation. Documentation has been reviewed. Laceration was evaluated patient has a large avulsion laceration does not heard have tendon or bony involvement. Patient has full range of motion, sensation neurovascularly intact with normal strength and movement.
[2023-04-25] MEDS: LIDOCAINE 1% (PF) 5 ML SUBCUT (12:39)
[2023-04-25] MEDS: TET,DIPH,PERTUSS(ACELL),VAC/PF 0.5 ML SYRINGE IM (12:39)
[2023-04-25] MEDS: BACITRACIN OINT 0.9 GM PCKT 1 APPLIC TOP (13:18)
[2023-04-25 13:35] VITALS: BP 144/77; PULSE 87; RESP 18; O2SAT 97
== END 2023-04-25 13:36 | disposition home or self-care (01) ==
PROVIDERS: Emergency Provider Physician Assistant; PCP Internal Medicine
DX: S61.211A Laceration without foreign body of left index finger without damage to nail, initial encounter (principal); W26.0XXA Contact with knife, initial encounter; Z23 Encounter for immunization
CPT/HCPCS: 12002; 90471; 99283; 90715